=== PATIENT | female | born 1950 | race Caucasian/White ===

== ENCOUNTER 2016-07-05 07:54 | Emergency (ER) | payer MEDICARE, OTHER, SELFPAY ==
[~2016-07-05] VITALS: Ht 160 cm; Wt 50.5 kg
[2016-07-05] MEDS ORDERED: KETOROLAC 30 MG/1 ML IM ONE (08:30)
[2016-07-05] MEDS ORDERED: DIAZEPAM 5 MG TABLET PO ONE (08:43)
[2016-07-05] MEDS ORDERED: CITA20TA9 PO (08:45)
[2016-07-05] MEDS ORDERED: BLOOD PRESSURE (08:45)
[2016-07-05] MEDS ORDERED: METH750T2 PO (08:45)
[2016-07-05] MEDS ORDERED: HYDR25TA11 PO (08:45)
[2016-07-05] MEDS ORDERED: DIAZEPAM 5 MG TABLET ONE (09:06)
[2016-07-05] MEDS ORDERED: KETOROLAC 30 MG/1 ML ONE (09:06)
[2016-07-05 09:09] LABS: ASPARTATE AMINO TRANSFERASE 34 U/L (15-37); BLOOD UREA NITROGEN 22 mg/dL (7-18)
[2016-07-05 10:02] VITALS: BP 149/78
== END 2016-07-05 12:40 | disposition home or self-care (01) ==
LOC: ED 08:24
DX: M54.9 Dorsalgia, unspecified (principal); R10.11 Right upper quadrant pain
CPT/HCPCS: 36415; 74000; 80053; 81003; 85025; 96372; 99285; J1885

== ENCOUNTER 2020-09-25 10:45 | Emergency (ER) | payer MEDICARE ==
[~2020-09-25] VITALS: Ht 157.5 cm; Wt 52.0 kg
[~2020-09-25 10:45] MED LIST: BLOOD PRESSURE; CITA20TA9 PO; HYDR-826 PO; METH-640 PO
--- NOTE | 2020-09-25 10:49 | NUR ---
PT BROUGHT IN BY NARINDER FROM [facility] WITH CHIEF COMPLAINT OF LEFT SHOULDER PAIN/ SWELLING SINCE YESTERDAY MORNING. PT DENIES CP, SOB, RECENT TRAUMA.
--- NOTE | 2020-09-25 10:55 | NUR ---
ERMD SAHM AT BEDSIDE FOR EVAL
[2020-09-25] MEDS ORDERED: SODIUM CHLORIDE FLUSH 10ML SYR IVF ONE (11:00)
[2020-09-25] MEDS ORDERED: ONDANSETRON 2MG/ML, 2ML IVPush ONE (11:00)
[2020-09-25] MEDS ORDERED: MORPHINE SULFATE 4 MG/ML, 1ML IVPush PRN (11:00)
[2020-09-25] MEDS ORDERED: MORPHINE SULFATE 4 MG/ML, 1ML ONE (11:05)
[2020-09-25] MEDS ORDERED: ONDANSETRON 2MG/ML, 2ML ONE (11:05)
[2020-09-25 11:19] LABS: BASOPHILS % (AUTO) 1 % (0-1); EOSINOPHILS % (AUTO) 1 % (1-7); LYMPHOCYTES % (AUTO) 18 % (22-44); MEAN CORPUSCULAR HGB CONC 34.7 g/dL (32.4-35.8); MEAN PLATELET VOLUME 7.9 fL (7.4-10.4); MONOCYTES % (AUTO) 13 % (2-9); NEUTROPHILS % (AUTO) 67 % (42-75); PLATELET COUNT 225 x10^3/uL (130-400); RED BLOOD COUNT 4.38 x10^6/uL (3.82-5.3); RED CELL DISTRIBUTION WIDTH 13.9 % (9.6-15.2)
--- NOTE | 2020-09-25 11:19 | NUR ---
PT TO IMAGING
[2020-09-25 11:23] LABS: HCT (SEDRATE) 44.2 % (34.6-47.8)
[2020-09-25 11:31] LABS: ALBUMIN 3.4 g/dL (3.4-5.0); ANION GAP 9 mmol/L (5-15); CALCIUM 9.5 mg/dL (8.5-10.1); CHLORIDE 107 mmol/L (98-107)
[2020-09-25 11:33] LABS: ALANINE AMINOTRANSFERASE 20 U/L (12-78); ALKALINE PHOSPHATASE 105 U/L (45-117); BILIRUBIN,TOTAL 1.1 mg/dL (0.2-1.0); TOTAL PROTEIN 7.1 g/dL (6.4-8.2)
[2020-09-25 11:38] VITALS: BP 148/80
--- NOTE | 2020-09-25 12:51 | NUR ---
EMT TECH AT BEDSIDE FOR SLING PLACEMENT
--- NOTE | 2020-09-25 13:08 | NUR ---
DC INSTRUCTIONS REVIEWED
== END 2020-09-25 13:10 | disposition home or self-care (01) ==
LOC: ED 11:52
DX: S42.032A Displaced fracture of lateral end of left clavicle, initial encounter for closed fracture (principal); S40.012A Contusion of left shoulder, initial encounter; I10 Essential (primary) hypertension; X58.XXXA Exposure to other specified factors, initial encounter; Y93.89 Activity, other specified; Y92.89 Other specified places as the place of occurrence of the external cause; Y99.8 Other external cause status
CPT/HCPCS: 36415; 71045; 73030; 80053; 84550; 85025; 85651; 96374; 96375; 99284; J2270; J2405